=== PATIENT | male | born 1985 | race Caucasian/White ===

== ENCOUNTER 2019-10-06 17:35 | Inpatient (IN) | payer MEDICAID ==
[~2019-10-06] VITALS: Ht 160 cm; Wt 54.5 kg
[2019-10-07] MEDS ORDERED: DIATR MEGLU/DIATRIZOATE SOLN 30ML ONE (01:50)
[2019-10-07 03:51] LABS: BASOPHILS % 0.6 % (0.0-2.0); EOSINOPHILS % 1.6 % (0.0-5.0); HEMATOCRIT. 41.3 % (42.0-52.0); HEMOGLOBIN. 14.5 g/dL (14.0-18.0); LYMPHOCYTES % 28.7 % (20.0-50.0); MEAN CORPUSCULAR HEMOGLOBIN 34.7 pg (28.0-32.0); MEAN CORPUSCULAR VOLUME 98.5 fL (80.0-94.0); MEAN PLATELET VOLUME 8.9 fl (7.4-10.4); NEUTROPHILS % 60.1 % (40.0-76.0); PLATELET 174 x1000/uL (130-400); RED BLOOD CELL COUNT 4.19 mill/uL (4.7-6.1); RED CELL DISTRIBUTION WIDTH 13.3 % (11.6-14.6)
[2019-10-07 03:55] LABS: CHLORIDE 102 mEq/L (98-107)
[2019-10-07] MEDS ORDERED: CARB200C7 GT (04:01)
[2019-10-07] MEDS ORDERED: LAMO200T50 GT (04:01)
[2019-10-07] MEDS ORDERED: ACET-2708 GT (04:01)
[2019-10-07] MEDS ORDERED: GUAI473S55 PO (04:01)
[2019-10-07] MEDS ORDERED: ASCO500C18 GT (04:01)
[2019-10-07] MEDS ORDERED: OMEP20CA14 GT (04:01)
[2019-10-07] MEDS ORDERED: ZNOU TOP (04:01)
[2019-10-07] MEDS ORDERED: BUSP15TA3 MT (04:01)
[2019-10-07] MEDS ORDERED: LEVE10006 GT (04:01)
[2019-10-07] MEDS ORDERED: ZOLP5TAB8 GT (04:01)
[2019-10-07] MEDS ORDERED: MULT-1146 GT (04:01)
[2019-10-07] MEDS ORDERED: BUSP30TA2 GT (04:01)
[2019-10-07] MEDS ORDERED: TRAZ150T78 GT (04:01)
[2019-10-07] MEDS ORDERED: GUAI473S55 GT (04:01)
[2019-10-07] MEDS ORDERED: OLAN15TA17 GT (04:01)
[2019-10-07] MEDS ORDERED: ARIP10TA16 GT (04:01)
[2019-10-07] MEDS ORDERED: CLON2TAB21 GT (04:01)
[2019-10-07] MEDS ORDERED: IPRATROPIUM/ALBUTEROL 0.5-3(2.5)MG/3ML NEB ORI PRN (06:45)
[2019-10-07] MEDS ORDERED: MAGNESIUM/ALUMINUM HYDROXIDE/SIMETHICONE 30ML UDC PO PRN (06:45)
[2019-10-07] MEDS ORDERED: DOCUSATE SODIUM 100MG CAPSULE PO PRN (06:45)
[2019-10-07] MEDS ORDERED: ONDANSETRON HCL 4MG/2ML INJ IV PRN (06:45)
[2019-10-07] MEDS ORDERED: CLONIDINE 0.1MG TABLET PO PRN (06:45)
[2019-10-07] MEDS ORDERED: NITROGLYCERIN 0.4MG TABLET SL SL PRN (06:45)
[2019-10-07] MEDS ORDERED: ACETAMINOPHEN 325MG TABLET PO PRN ×2 (06:45)
[2019-10-07] MEDS: LEVETIRACETAM 500MG TABLET PO SCH ×2 (09:00→23:33)
[2019-10-07] MEDS: LAMOTRIGINE 100MG TABLET PO SCH ×2 (09:00→23:33)
[2019-10-07] MEDS: ASCORBIC ACID 500 MG TABLET PO SCH ×2 (09:00→23:33)
[2019-10-07] MEDS: FAMOTIDINE 20MG TABLET PO SCH ×2 (09:00→23:33)
[2019-10-07] MEDS: HALOPERIDOL LACTATE 5MG/ML VIAL IM PRN (09:02)
[2019-10-07] MEDS: LORAZEPAM 2MG/ML CPJ IV PRN (09:02)
[2019-10-07 11:52] VITALS: BP 127/74
[2019-10-07] MEDS: ENOXAPARIN 40MG/0.4ML SYR SUBCUT SCH (22:51)
[2019-10-07] MEDS: ZINC SULFATE 220 MG ( 50 ) CAPSULE PO SCH (23:32)
[2019-10-07 23:52] VITALS: BP 127/74
[2019-10-08] VITALS: BP 127/74
[2019-10-08] MEDS: HALOPERIDOL LACTATE 5MG/ML VIAL IM PRN (00:45)
[2019-10-08] MEDS: ZOLPIDEM TARTRATE 5MG TABLET PO PRN (00:46)
[2019-10-08 08:00] VITALS: BP 116/71
[2019-10-08] MEDS ORDERED: PNEUMOCOCCAL 23-VAL P-SAC VAC 0.5 ML IM ONE (08:00)
[2019-10-08] MEDS: LEVETIRACETAM 500MG TABLET PO SCH ×2 (10:41→21:34)
[2019-10-08] MEDS: ASCORBIC ACID 500 MG TABLET PO SCH ×2 (10:41→21:34)
[2019-10-08] MEDS: LAMOTRIGINE 100MG TABLET PO SCH ×2 (10:41→21:34)
[2019-10-08] MEDS: ZINC SULFATE 220 MG ( 50 ) CAPSULE PO SCH (10:41)
[2019-10-08] MEDS: ENOXAPARIN 40MG/0.4ML SYR SUBCUT SCH (10:42)
[2019-10-08] MEDS: FAMOTIDINE 20MG TABLET PO SCH ×2 (10:43→21:34)
[2019-10-08 12:00] VITALS: BP 107/70
[2019-10-08 16:00] VITALS: BP 108/64
[2019-10-08 20:00] VITALS: BP 118/80
[2019-10-09] VITALS (7 sets, daily range): BP systolic 108–151; BP diastolic 69–81
[2019-10-09] MEDS: ZINC SULFATE 220 MG ( 50 ) CAPSULE PO SCH (09:58)
[2019-10-09] MEDS: FAMOTIDINE 20MG TABLET PO SCH ×2 (09:58→20:51)
[2019-10-09] MEDS: LAMOTRIGINE 100MG TABLET PO SCH ×2 (09:58→20:52)
[2019-10-09] MEDS: LEVETIRACETAM 500MG TABLET PO SCH ×2 (09:58→20:52)
[2019-10-09] MEDS: ASCORBIC ACID 500 MG TABLET PO SCH ×2 (09:58→20:52)
[2019-10-09] MEDS: ENOXAPARIN 40MG/0.4ML SYR SUBCUT SCH (09:59)
[2019-10-09] MEDS ORDERED: DIATR MEGLU/DIATRIZOATE SOLN 30ML GT NR (15:00)
[2019-10-09] MEDS ORDERED: DIATR MEGLU/DIATRIZOATE SOLN 30ML ONE (16:22)
[2019-10-10] MEDS: ZOLPIDEM TARTRATE 5MG TABLET PO PRN (02:40)
[2019-10-10 04:00] VITALS: BP 122/82
[2019-10-10 08:00] VITALS: BP 111/77
[2019-10-10] MEDS: ENOXAPARIN 40MG/0.4ML SYR SUBCUT SCH (09:00)
[2019-10-10 12:00] VITALS: BP 121/81
[2019-10-10] MEDS: FAMOTIDINE 20MG TABLET PO SCH ×2 (14:18→21:06)
[2019-10-10] MEDS: LEVETIRACETAM 500MG TABLET PO SCH ×2 (14:19→21:06)
[2019-10-10] MEDS: LAMOTRIGINE 100MG TABLET PO SCH ×2 (14:19→21:06)
[2019-10-10] MEDS: ASCORBIC ACID 500 MG TABLET PO SCH ×2 (14:19→21:06)
[2019-10-10] MEDS: ZINC SULFATE 220 MG ( 50 ) CAPSULE PO SCH (14:19)
[2019-10-10] MEDS: LORAZEPAM 2MG/ML CPJ IV PRN (15:32)
[2019-10-10 16:00] VITALS: BP 109/74
[2019-10-10] MEDS: HALOPERIDOL LACTATE 5MG/ML VIAL IM PRN (19:56)
[2019-10-10 20:00] VITALS: BP 113/81
[2019-10-11] VITALS: BP 110/70
[2019-10-11] MEDS: HALOPERIDOL LACTATE 5MG/ML VIAL IM PRN (02:36)
[2019-10-11 04:00] VITALS: BP 113/80
[2019-10-11 08:00] VITALS: BP 108/77
[2019-10-11] MEDS: FAMOTIDINE 20MG TABLET PO SCH ×2 (08:26→20:58)
[2019-10-11] MEDS: ENOXAPARIN 40MG/0.4ML SYR SUBCUT SCH (08:26)
[2019-10-11] MEDS: LAMOTRIGINE 100MG TABLET PO SCH ×2 (08:26→20:59)
[2019-10-11] MEDS: LEVETIRACETAM 500MG TABLET PO SCH ×2 (08:26→20:59)
[2019-10-11] MEDS: ZINC SULFATE 220 MG ( 50 ) CAPSULE PO SCH (08:26)
[2019-10-11] MEDS: ASCORBIC ACID 500 MG TABLET PO SCH ×2 (08:26→20:58)
[2019-10-11 12:00] VITALS: BP 110/73
[2019-10-11 20:00] VITALS: BP 118/74
[2019-10-12] VITALS: BP 117/76
[2019-10-12 04:00] VITALS: BP 116/78
[2019-10-12 08:00] VITALS: BP 119/82
[2019-10-12] MEDS: ENOXAPARIN 40MG/0.4ML SYR SUBCUT SCH (09:18)
[2019-10-12] MEDS: ZINC SULFATE 220 MG ( 50 ) CAPSULE PO SCH (09:19)
[2019-10-12] MEDS: FAMOTIDINE 20MG TABLET PO SCH ×2 (09:19→21:18)
[2019-10-12] MEDS: LEVETIRACETAM 500MG TABLET PO SCH ×2 (09:19→21:17)
[2019-10-12] MEDS: ASCORBIC ACID 500 MG TABLET PO SCH ×2 (09:19→21:17)
[2019-10-12] MEDS: LAMOTRIGINE 100MG TABLET PO SCH ×2 (09:19→21:17)
[2019-10-12 12:00] VITALS: BP 108/70
[2019-10-12 16:00] VITALS: BP 110/72
[2019-10-12 20:00] VITALS: BP 117/77
[2019-10-13] VITALS: BP 124/75
[2019-10-13 04:00] VITALS: BP 118/72
[2019-10-13 08:00] VITALS: BP 107/71
[2019-10-13] MEDS: LEVETIRACETAM 500MG TABLET PO SCH (09:46)
[2019-10-13] MEDS: FAMOTIDINE 20MG TABLET PO SCH (09:46)
[2019-10-13] MEDS: ENOXAPARIN 40MG/0.4ML SYR SUBCUT SCH (09:47)
[2019-10-13] MEDS: ZINC SULFATE 220 MG ( 50 ) CAPSULE PO SCH (09:47)
[2019-10-13] MEDS: LAMOTRIGINE 100MG TABLET PO SCH (09:47)
[2019-10-13] MEDS: ASCORBIC ACID 500 MG TABLET PO SCH (09:47)
[2019-10-13 12:00] VITALS: BP 126/79
[2019-10-13 16:49] VITALS: BP 109/74
== END 2019-10-13 18:28 | disposition home or self-care (01) | DRG 222 ==
LOC: ER 17:35 → EDBEDREQSVC 10-07 04:50 → EDBEDREQ 10-07 04:50 → EDBEDREQTM 10-07 04:50 → ENRESERV 10-07 14:37 → 7WST 10-08 00:20 → 6EST 10-09 21:56
PROVIDERS: ADMIT Internal Medicine; ATTEND Internal Medicine
PROC: 0DH60UZ Insertion of Feeding Device into Stomach, Open Approach (ICD-10-PCS; principal; 2019-10-09)
PROC: 3E0G76Z Introduction of Nutritional Substance into Upper GI, Via Natural or Artificial Opening (ICD-10-PCS; 2019-10-09)
DX: K94.23 Gastrostomy malfunction (principal); G92 Toxic encephalopathy; E11.9 Type 2 diabetes mellitus without complications; F79 Unspecified intellectual disabilities; Y83.8 Other surgical procedures as the cause of abnormal reaction of the patient, or of later complication, without mention of misadventure at the time of the procedure; Y82.8 Other medical devices associated with adverse incidents; G40.909 Epilepsy, unspecified, not intractable, without status epilepticus; R13.10 Dysphagia, unspecified; Z79.1 Long term (current) use of non-steroidal anti-inflammatories (NSAID); Z79.899 Other long term (current) drug therapy; Y92.89 Other specified places as the place of occurrence of the external cause; Z03.818 Encounter for observation for suspected exposure to other biological agents ruled out
CPT/HCPCS: 74018; 93970; 96372; 96374; 99285; J1630; J1650; J2060; Q9963; U0003-CS

== ENCOUNTER 2021-11-23 15:49 | Emergency (ER) | payer MEDICAID ==
[~2021-11-23] VITALS: Ht 165.1 cm; Wt 55.0 kg
[~2021-11-23 15:49] MED LIST: ACET-2708 GT; ARIP10TA56 GT; ASCO500C18 GT; BUSP15TA3 MT; BUSP30TA2 GT; CARB200C7 GT; CLON2TAB21 GT; GUAI473S55 GT; GUAI473S55 PO; LAMO200T50 GT; LEVE10006 GT; MULT-1146 GT; OLAN15TA35 GT; OMEP20CA14 GT; TRAZ150T78 GT; ZNOU TOP; ZOLP5TAB8 GT
[2021-11-23 17:00] VITALS: BP 120/85
[2021-11-23] MEDS ORDERED: DIATR MEGLU/DIATRIZOATE SOLN 30ML ONE (17:27)
== END 2021-11-24 00:28 | disposition home health service (06) ==
LOC: ER 15:49
DX: Z43.1 Encounter for attention to gastrostomy (principal); F84.0 Autistic disorder; G40.909 Epilepsy, unspecified, not intractable, without status epilepticus
CPT/HCPCS: 74018; 99284; Q9963

== ENCOUNTER 2021-12-16 20:20 | Emergency (ER) | payer MEDICAID ==
[~2021-12-16] VITALS: Ht 157.5 cm; Wt 50.0 kg
[~2021-12-16 20:20] MED LIST changes: -BUSP15TA3 MT; -CLON2TAB21 GT; -GUAI473S55 GT; -OLAN15TA35 GT; -TRAZ150T78 GT; -ZNOU TOP; -ZOLP5TAB8 GT
[2021-12-16 21:11] LABS: HEMATOCRIT. 36.2 % (42.0-52.0); HEMOGLOBIN. 12.4 g/dL (14.0-18.0); MEAN CORPUSCULAR HEMOGLOBIN 33.3 pg (28.0-32.0); MEAN CORPUSCULAR VOLUME 97.3 fL (80.0-94.0); MEAN PLATELET VOLUME 9.1 fl (7.4-10.4); PLATELET 231 x1000/uL (130-400); RED BLOOD CELL COUNT 3.72 mill/uL (4.7-6.1); RED CELL DISTRIBUTION WIDTH 13.1 % (11.6-14.6)
[2021-12-16 21:19] LABS: CHLORIDE 105 mEq/L (98-107)
[2021-12-16 21:28] LABS: PARTIAL THROMBOPLASTIN TIME 25.2 sec (23.4-31.0); PROTHROMBIN TIME 10.7 sec (9.6-11.0)
[2021-12-16 21:54] LABS: PLATELET ESTIMATE NORMAL
[2021-12-17] MEDS ORDERED: HALOPERIDOL LACTATE 5MG/ML VIAL IM ONE (02:00)
[2021-12-17] MEDS ORDERED: DIPHENHYDRAMINE 50MG/ML VIAL IM ONE (02:00)
[2021-12-17 09:25] VITALS: BP 150/76
== END 2021-12-17 09:38 | disposition home or self-care (01) ==
LOC: ER 20:20
DX: R53.1 Weakness (principal); F84.0 Autistic disorder; F79 Unspecified intellectual disabilities; Z93.1 Gastrostomy status; Z16.21 Resistance to vancomycin
CPT/HCPCS: 36415; 70450; 80053; 83880; 84484; 85025; 85610; 85730; 96372; 99285; J1200; J1630